=== PATIENT | female | born 1960 ===

== ENCOUNTER 2017-08-09 11:19 | Emergency (ER) | payer SELFPAY ==
[2017-08-09 11:24] VITALS: O2SAT 99
[2017-08-09 11:26] VITALS: BMI 24.7
[2017-08-09] MEDS ORDERED: Oxycodone/Acetaminophen 5/325 mg Tab PO STA (12:31)
[2017-08-09] MEDS ORDERED: Oxycodone/Acetaminophen 5/325 mg Tab ONE (12:41)
--- NOTE | 2017-08-09 13:15 | ED PDOC ---
HPI: Back Time Seen by Provider: 08/09/17 11:54 Chief Complaint (Nursing): Back Pain Chief Complaint (Provider): Back pain History Per: Patient History/Exam Limitations: no limitations Onset/Duration Of Symptoms: Days (x1) Current Symptoms Are (Timing): Still Present Quality Of Discomfort: Sharp (and constant) Previous Symptoms: Back Pain Exacerbating Factor(s): Movement Additional Complaint(s): Elizabeth Ivan is a 57 year old female, with no past medical history, who presents to the emergency department via BLS complaining of a constant right sided lower back pain onset since this morning. Patient reports she woke up this morning with an intense sharp pain to the right lower back that worsens with movement. She states the pain radiates to the right upper leg. Patient took tylenol but with no relief. She reports similar pain in the past but denies any chronic back pain history. She denies any weakness, numbness, incontinence, abdominal pain or difficulty walking. No further medical complaints. PMD: None provided. Past Medical History Reviewed: Historical Data, Nursing Documentation, Vital Signs Vital Signs: Last Vital Signs Temp 98.7 F 08/09/17 11:23 Pulse 83 08/09/17 11:23 Resp 20 08/09/17 11:23 BP 162/78 H 08/09/17 11:23 Pulse Ox 99 08/09/17 11:23 - Family History Family History: States: Unknown Family Hx - Social History Current smoker - smoking cessation education provided: No Alcohol: None Drugs: Denies - Home Medications Home Medications: Ambulatory Orders Medication Instructions Recorded Cyclobenzaprine [Cyclobenzaprine 10 mg PO TID #15 tab 08/09/17 HCl] Naproxen 500 mg PO BID #20 ect 08/09/17 - Allergies Allergies/Adverse Reactions: Allergies Allergy/AdvReac Type Severity Reaction Status Date / Time No Known Allergies Allergy Verified 08/09/17 11:29 Review of Systems ROS Statement: Except As Marked, All Systems Reviewed And Found Negative Gastrointestinal: Negative for: Abdominal Pain Genitourinary Female: Negative for: Incontinence Musculoskeletal: Positive for: Back Pain (constant and sharp right sided lower back pain that radiates to right upper leg), Leg Pain (right upper) Neurological: Negative for: Weakness, Numbness Physical Exam - Reviewed Nursing Documentation Reviewed: Yes Vital Signs Reviewed: Yes - Physical Exam Appears: Positive for: Well (comfortable), Non-toxic, No Acute Distress Head Exam: Positive for: ATRAUMATIC, NORMAL INSPECTION, NORMOCEPHALIC Skin: Positive for: Normal Color, Warm, Dry Eye Exam: Positive for: EOMI, Normal appearance, PERRL Neck: Positive for: Normal, Painless ROM, Supple Cardiovascular/Chest: Positive for: Regular Rate, Rhythm. Negative for: Murmur Respiratory: Positive for: Normal Breath Sounds. Negative for: Respiratory Distress Gastrointestinal/Abdominal: Positive for: Normal Exam, Bowel Sounds, Soft. Negative for: Tenderness Back: Positive for: Other (muscle spasm present on the back). Negative for: Normal Inspection (right lower back paraspinal tenderness. ), L CVA Tenderness, R CVA Tenderness Extremity: Positive for: Normal ROM, Other (Positive straight leg raise test with pain) Neurologic/Psych: Positive for: Alert, Oriented (x3). Negative for: Motor/ Sensory Deficits - ECG O2 Sat by Pulse Oximetry: 99 (RA) Pulse Ox Interpretation: Normal - Progress Re-evaluation Time: 13:56 Condition: Re-examined, Improved Medical Decision Making Medical Decision Making: Initial Impression: lower back pain. Differential includes: lumbar radiculopathy , sciatica, muscle spasm Initial Plan: --Flexeril 10 mg PO --Toradol 15 mg IM --Percocet 5/325 mg Tab --reevaluation 1355 -Upon provider evaluation patient is medically stable, and requires no further treatment in the ED at this time. Patient will be discharged with Rx for Cyclobenzaprine HCl and Naproxen. Counseling was provided and all questions were answered regarding diagnosis and need for follow up. There is agreement to discharge plan. Return if symptoms persist or worsen. Scribe Attestation: Documented by David Barreto, acting as a scribe for Leroy Garcia MD Provider Scribe Attestation: All medical record entries made by the Scribe were at my direction and personally dictated by me. I have reviewed the chart and agree that the record accurately reflects my personal performance of the history, physical exam, medical decision making, and the department course for this patient. I have also personally directed, reviewed, and agree with the discharge instructions and disposition. Disposition - Clinical Impression Clinical Impression: Back pain - Patient ED Disposition Is Patient to be Admitted: No Doctor Will See Patient In The: Office Counseled Patient/Family Regarding: Studies Performed, Diagnosis, Need For Followup - Disposition Referrals: [facility] [Outside] Disposition: Routine/Home Disposition Time: 13:56 Condition: GOOD Additional Instructions: Take your medications as instructed. Follow up with your PCP in 2-3 days. Prescriptions: Cyclobenzaprine [Cyclobenzaprine HCl] 10 mg PO TID #15 tab Naproxen 500 mg PO BID #20 ect Instructions: Back Pain (ED)
[2017-08-09 14:06] VITALS: BP 126/78; PULSE 78; RESP 19; TEMP 97.6
== END 2017-08-09 14:06 | disposition home or self-care (01) ==
LOC: H.ER 11:19
DX: M54.9 Dorsalgia, unspecified (principal)
CPT/HCPCS: 96372; 99282; J1885